=== PATIENT | female | born 1955 | race Caucasian/White ===

== ENCOUNTER → 2020-08-13 | Outpatient (CLI) | payer OTHER ==
--- NOTE | 2020-08-13 09:56 | Diagnostic Imaging Report ---
EXAM: CT Head Without Intravenous Contrast CLINICAL HISTORY: PAIN TECHNIQUE: Axial computed tomography images of the head/brain without intravenous contrast. CTDI is 15.3 mGy and DLP is 333.8 mGy-cm. One or more of the following dose reduction techniques were used: automated exposure control, adjustment of the mA and/or kV according to patient size, use of iterative reconstruction technique. COMPARISON: No relevant prior studies available. FINDINGS: Brain: Unremarkable. No hemorrhage. No significant white matter disease. No edema. Ventricles: Unremarkable. No ventriculomegaly. Bones/joints: See below. Soft tissues: There is moderate left frontal scalp hematoma. There is a moderately comminuted fracture of bilateral nasal bones are displaced to the right. There is a fracture of the left orbital floor without evidence of inferior rectus muscle entrapment. Sinuses: Unremarkable as visualized. No acute sinusitis. Mastoid air cells: Unremarkable as visualized. No mastoid effusion. IMPRESSION: No evidence of acute intracranial process. There is a moderately comminuted fracture of bilateral nasal bones are displaced to the right. There is a fracture of the left orbital floor without evidence of inferior rectus muscle entrapment.
--- NOTE | 2020-08-13 10:56 | Diagnostic Imaging Report ---
EXAM: CT Maxillofacial Without Intravenous Contrast CLINICAL HISTORY: PAIN TECHNIQUE: Axial computed tomography images of the face without intravenous contrast. CTDI is 15.3 mGy and DLP is 333.8 mGy-cm. One or more of the following dose reduction techniques were used: automated exposure control, adjustment of the mA and/or kV according to patient size, use of iterative reconstruction technique. COMPARISON: None FINDINGS: BONES: Mildly displaced, comminuted fractures of the nasal bones. Nondisplaced fracture of the bony nasal septum. Displaced fractures of the floor of the left orbit. SINUSES: Small to moderate amount of blood in the left maxillary sinus. Mild mucosal thickening in the ethmoid air cells and left sphenoid sinus. ORBITS: No definite entrapment of the extraocular muscles. . The globes are grossly unremarkable. SOFT TISSUES: Nasal soft tissue swelling. Prominent left frontal/periorbital soft tissue hematoma. IMPRESSION: 1. Mildly displaced, comminuted fractures of the nasal bones. Nondisplaced fracture of the bony nasal septum. 2. Displaced fractures of the floor of the left orbit. 3. Nasal soft tissue swelling. Prominent left frontal/periorbital soft tissue hematoma.
== END | disposition home or self-care (01) ==
LOC: CAT 09:19
DX: S02.2XXA Fracture of nasal bones, initial encounter for closed fracture (principal); S02.32XA Fracture of orbital floor, left side, initial encounter for closed fracture; X58.XXXA Exposure to other specified factors, initial encounter; Y92.9 Unspecified place or not applicable
CPT/HCPCS: 70450; 70486